=== PATIENT | female | born 1995 | race Caucasian/White ===

== ENCOUNTER 2025-05-20 23:46 | Emergency (ER) | payer BC ==
[~2025-05-20] VITALS: Ht 157.5 cm; Wt 74.8 kg
[2025-05-20 23:54] VITALS: BP 149/83
[2025-05-21] MEDS: ACETAMINOPHEN 500 MG TABLET PO ONE (01:20)
[2025-05-21] MEDS ORDERED: NEOMY/BACITRA/POLYMYXIN B OINT UD PACKET TP ONE (01:21)
[2025-05-21] MEDS ORDERED: AMOXICILLIN-CLAVUL 500-125MG TABLET ONE (01:22)
[2025-05-21] MEDS ORDERED: AMOX-427 PO (01:23)
[2025-05-21] MEDS: AMOXICILLIN-CLAVUL 500-125MG TABLET PO ONE (01:30)
[2025-05-21] MEDS: NEOMY/BACITRA/POLYMYXIN B OINT UD PACKET TP ONE (01:30)
[2025-05-21 01:31] VITALS: BP 135/80; O2SAT 96
== END 2025-05-21 01:32 | disposition home or self-care (01) ==
LOC: ER 23:53
DX: O26.893 Other specified pregnancy related conditions, third trimester (principal); S01.81XA Laceration without foreign body of other part of head, initial encounter; Z88.7 Allergy status to serum and vaccine; Z3A.32 32 weeks gestation of pregnancy; W54.0XXA Bitten by dog, initial encounter; Y93.89 Activity, other specified; Y92.89 Other specified places as the place of occurrence of the external cause; Y99.9 Unspecified external cause status
CPT/HCPCS: A4606; A4663